=== PATIENT | male | born 1970 | race Hispanic/Latino ===

== ENCOUNTER 2023-03-02 11:56 | Inpatient (IN) | payer OTHER, MEDICARE ==
[2023-03-01 12:10] LABS: BASOPHILS % 0.8 % (0.0-1.0); EOSINOPHILS # (AUTO) 0.1 (0.0-0.4); HEMOGLOBIN 13.2 g/dL (14.0-18.0); LYMPHOCYTES # (AUTO) 0.8 (1.0-3.2); LYMPHOCYTES % 15.6 % (18.0-39.1); MEAN CORPUSCULAR HEMOGLOBIN 29.9 pg (28-32); MEAN CORPUSCULAR HGB CONC 33.8 g/dL (31-35); MEAN CORPUSCULAR VOLUME 88.2 fL (81-99); MONOCYTES # (AUTO) 0.2 (0.2-0.8); MONOCYTES % 4.6 % (4.4-11.3); NEUTROPHILS % 77.8 % (38.7-80.0); PLATELET COUNT 200 x10e3/uL (140-360); RED BLOOD COUNT 4.42 x10e6/uL (4.3-5.7); RED CELL DISTRIBUTION WIDTH 14.1 % (11.7-14.4); WHITE BLOOD COUNT 5.19 x10e3/uL (4.8-10.8)
[2023-03-01 12:24] LABS: INR 1.28; PROTHROMBIN TIME 16.3 seconds (11.9-14.5)
[2023-03-01 12:25] LABS: PARTIAL THROMBOPLASTIN TIME 29.2 seconds (23.8-35.5)
[2023-03-01 12:33] LABS: ALBUMIN/GLOBULIN RATIO 0.8 (0.8-2.0); BILIRUBIN,TOTAL 1.7 mg/dL (0.2-1.2); CALCIUM 7.8 mg/dL (8.4-10.2); CREATININE, SERUM 3.35 mg/dL (0.72-1.25)
[2023-03-02] VITALS (9 sets, daily range): BP systolic 86–107; BP diastolic 50–84; PULSE 65–74; RESP 14–18; TEMP 97.3–98.3; O2SAT 99–100
[~2023-03-02] VITALS: Ht 175.3 cm; Wt 93.4 kg
[~2023-03-02 11:56] MED LIST: ELIQUIS5 MG PO; NORCO PO; PANTOPRAZOLE SO40 MG PO
[2023-03-02] MEDS ORDERED: GLYCOPYRROLATE INJ 0.2 MG/ML VIAL ONE (12:40)
[2023-03-02] MEDS ORDERED: SEVOFLURANE INHAL SOLN 250 ML PEN BTL ONE (12:40)
[2023-03-02] MEDS ORDERED: PROPOFOL IV EMULSION 10 MG/ML 20 ML VIAL ONE (12:40)
[2023-03-02] MEDS ORDERED: ONDANSETRON HCL INJ 2MG/ML 2ML 2 MG/ML VIAL ONE (12:40)
[2023-03-02] MEDS ORDERED: DEXAMETHASONE SOD PHOS INJ 4 MG/ML SDV ONE (12:40)
[2023-03-02] MEDS ORDERED: ROCURONIUM BROMIDE 10 MG/ML 5ML VIAL IV ONE (12:40)
[2023-03-02] MEDS ORDERED: LIDOCAINE HCL 2% LOCAL INJ 5 ML SDV VIAL INJ ONE (12:40)
[2023-03-02] MEDS ORDERED: EPHEDRINE SULFATE INJ 50 MG/ML VIAL ONE (12:40)
[2023-03-02] MEDS ORDERED: ETOMIDATE 2 MG/ML 10 ML INJ IV ONE (12:40)
[2023-03-02] MEDS ORDERED: LACTATED RINGER'S 1,000 ML ONE (12:48)
[2023-03-02] MEDS ORDERED: MIDAZOLAM HCL 2 MG/2 ML VIAL ONE (12:57)
[2023-03-02] MEDS ORDERED: FENTANYL CITRATE/PF 100MCG/2 ML INJ ONE ×2 (12:57→17:56)
[2023-03-02] MEDS ORDERED: SUGAMMADEX SODIUM 200 MG/2 ML VIAL IV ONE (13:18)
[2023-03-02] MEDS ORDERED: KETAMINE 50MG/5ML SYR ONE (13:18)
[2023-03-02] MEDS ORDERED: ALBUMIN 25% 12.5GM 50ML 50 ML IV ONE (13:19)
[2023-03-02] MEDS ORDERED: FAMOTIDINE 20 MG/2 ML VIAL IV ONE (13:19)
[2023-03-02] MEDS ORDERED: ACETAMINOPHEN 1000 MG/100 ML 100 ML IV ONE (13:19)
[2023-03-02] MEDS ORDERED: BUPIVACAINE HCL 0.5% INJ 30 ML VIAL INJ ONE (13:30)
[2023-03-02] MEDS ORDERED: LIDOCAINE 1% W/EPINEPHRINE 20 ML VIAL ONE (13:30)
[2023-03-02] MEDS: SODIUM CHLORIDE 0.9% 250ML IRRIG IR SCH ×2 (18:00→22:00)
[2023-03-02] MEDS: DEXTROSE 5%/LACTATED RINGERS 1,000 ML IV SCH ×2 (18:18→19:24)
[2023-03-02] MEDS: Cefoxitin 2 G in SODIUM CHLORIDE 0.9% 100 ML IV SCH (19:24)
[2023-03-02] MEDS: HYDROMORPHONE 1MG/1ML INJ IV PRN (20:29)
[2023-03-03] VITALS (22 sets, daily range): BP systolic 80–108; BP diastolic 51–74; PULSE 77–108; RESP 16–25; TEMP 98–99; O2SAT 96–100
[2023-03-03] MEDS: ENOXAPARIN SOD INJ 40 MG/0.4 ML SYR SC SCH ×2 (01:18→14:15)
[2023-03-03] MEDS: Cefoxitin 2 G in SODIUM CHLORIDE 0.9% 100 ML IV SCH ×4 (01:18→20:15)
[2023-03-03] MEDS: HYDROMORPHONE 1MG/1ML INJ IV PRN ×3 (01:19→12:13)
[2023-03-03] MEDS: SODIUM CHLORIDE 0.9% 250ML IRRIG IR SCH ×5 (02:00→14:10)
[2023-03-03] MEDS: DEXTROSE 5%/LACTATED RINGERS 1,000 ML IV SCH (06:42)
[2023-03-03 07:35] LABS: BASOPHILS % 0.1 % (0.0-1.0); EOSINOPHILS % 0.1 % (0.0-6.0); HEMATOCRIT 32.8 % (38.2-49.6); HEMOGLOBIN 10.9 g/dL (14.0-18.0); LYMPHOCYTES # (AUTO) 2.1 (1.0-3.2); LYMPHOCYTES % 27.9 % (18.0-39.1); MEAN CORPUSCULAR HEMOGLOBIN 29.5 pg (28-32); MEAN CORPUSCULAR HGB CONC 33.2 g/dL (31-35); MEAN CORPUSCULAR VOLUME 88.6 fL (81-99); MONOCYTES # (AUTO) 0.5 (0.2-0.8); MONOCYTES % 7.2 % (4.4-11.3); NEUTROPHILS # (AUTO) 4.8 (2.1-6.9); NEUTROPHILS % 64.4 % (38.7-80.0); PLATELET COUNT 170 x10e3/uL (140-360); RED CELL DISTRIBUTION WIDTH 14.3 % (11.7-14.4); WHITE BLOOD COUNT 7.46 x10e3/uL (4.8-10.8)
[2023-03-03 07:49] LABS: ALBUMIN 2.4 g/dL (3.5-5.0); ALBUMIN/GLOBULIN RATIO 0.8 (0.8-2.0); ANION GAP 14.7 mmol/L (8-16); BILIRUBIN,TOTAL 1.5 mg/dL (0.2-1.2); CALCIUM 7.2 mg/dL (8.4-10.2); CREATININE, SERUM 3.16 mg/dL (0.72-1.25); POTASSIUM 3.7 mmol/L (3.5-5.1); TOTAL PROTEIN 5.4 g/dL (6.5-8.1)
[2023-03-03] MEDS ORDERED: ALBUMIN 5% 0.05 GM/ML BTL IV ONE (08:15)
[2023-03-03] MEDS: SODIUM CHLORIDE 0.9% 1000ML 1,000 ML IV SCH (14:23)
[2023-03-03] MEDS: ACETAMINOPHEN 1000 MG/100 ML IV SCH (16:44)
[2023-03-03] MEDS: CENTRAL TPN FORMULA 1 BAG IV SCH (20:18)
[2023-03-04] VITALS (13 sets, daily range): BP systolic 75–124; BP diastolic 50–86; PULSE 80–101; RESP 18–24; TEMP 98.4–99; O2SAT 91–99
[2023-03-04] MEDS: SODIUM CHLORIDE 0.9% 250ML IRRIG IR SCH ×7 (00:43→22:00)
[2023-03-04] MEDS: SODIUM CHLORIDE 0.9% 1000ML 1,000 ML IV SCH ×3 (00:44→20:08)
[2023-03-04] MEDS: ENOXAPARIN SOD INJ 40 MG/0.4 ML SYR SC SCH ×2 (00:52→14:27)
[2023-03-04] MEDS: ACETAMINOPHEN 1000 MG/100 ML IV SCH ×2 (00:53→05:22)
[2023-03-04] MEDS: Cefoxitin 2 G in SODIUM CHLORIDE 0.9% 100 ML IV SCH ×4 (01:01→20:08)
[2023-03-04 05:42] LABS: BASOPHILS % 0.3 % (0.0-1.0); EOSINOPHILS # (AUTO) 0.2 (0.0-0.4); EOSINOPHILS % 2.7 % (0.0-6.0); HEMATOCRIT 28.9 % (38.2-49.6); HEMOGLOBIN 9.7 g/dL (14.0-18.0); LYMPHOCYTES # (AUTO) 1.7 (1.0-3.2); LYMPHOCYTES % 27.9 % (18.0-39.1); MEAN CORPUSCULAR HEMOGLOBIN 29.8 pg (28-32); MEAN CORPUSCULAR HGB CONC 33.6 g/dL (31-35); MEAN CORPUSCULAR VOLUME 88.9 fL (81-99); MONOCYTES # (AUTO) 0.4 (0.2-0.8); MONOCYTES % 6.9 % (4.4-11.3); NEUTROPHILS # (AUTO) 3.7 (2.1-6.9); NEUTROPHILS % 61.9 % (38.7-80.0); PLATELET COUNT 133 x10e3/uL (140-360); RED BLOOD COUNT 3.25 x10e6/uL (4.3-5.7); RED CELL DISTRIBUTION WIDTH 14.2 % (11.7-14.4); WHITE BLOOD COUNT 5.96 x10e3/uL (4.8-10.8)
[2023-03-04 06:04] LABS: ALBUMIN 1.9 g/dL (3.5-5.0); ALBUMIN/GLOBULIN RATIO 0.7 (0.8-2.0); ANION GAP 12.5 mmol/L (8-16); BILIRUBIN,TOTAL 1.4 mg/dL (0.2-1.2); CREATININE, SERUM 3.08 mg/dL (0.72-1.25); POTASSIUM 3.5 mmol/L (3.5-5.1); TOTAL PROTEIN 4.5 g/dL (6.5-8.1)
[2023-03-04 06:08] LABS: CALCIUM 6.6 mg/dL (8.4-10.2)
[2023-03-04] MEDS ORDERED: POTASSIUM CHLORIDE 20MEQ/100ML 100 ML IV ONE (08:00)
[2023-03-04] MEDS ORDERED: MAGNESIUM SULFATE 2GM/50ML 50 ML IV ONE ×3 (08:45→15:00)
[2023-03-04] MEDS: MUPIROCIN 2% OINT 22 GM TUBE TOP SCH ×2 (09:54→21:16)
[2023-03-04] MEDS: HYDROMORPHONE 1MG/1ML INJ IV PRN ×5 (10:00→23:49)
[2023-03-04] MEDS ORDERED: ACETAMINOPHEN 1000 MG/100 ML IV PRN (12:00)
[2023-03-04] MEDS ORDERED: CALCIUM GLUC 1 G/50 ML NACL 100 ML IV ONE (12:45)
[2023-03-04] MEDS: CENTRAL TPN FORMULA 1 BAG IV SCH (20:20)
[2023-03-05] VITALS (22 sets, daily range): BP systolic 105–122; BP diastolic 71–89; PULSE 78–102; RESP 15–24; TEMP 98.1–98.8; O2SAT 93–100
[2023-03-05] MEDS: ENOXAPARIN SOD INJ 40 MG/0.4 ML SYR SC SCH ×2 (01:08→13:47)
[2023-03-05] MEDS: Cefoxitin 2 G in SODIUM CHLORIDE 0.9% 100 ML IV SCH ×4 (02:05→19:53)
[2023-03-05] MEDS: SODIUM CHLORIDE 0.9% 250ML IRRIG IR SCH ×4 (02:05→13:49)
[2023-03-05] MEDS: HYDROMORPHONE 1MG/1ML INJ IV PRN ×5 (04:17→19:54)
[2023-03-05 05:24] LABS: BASOPHILS % 0.1 % (0.0-1.0); EOSINOPHILS # (AUTO) 0.3 (0.0-0.4); EOSINOPHILS % 3.4 % (0.0-6.0); HEMATOCRIT 30.8 % (38.2-49.6); HEMOGLOBIN 9.9 g/dL (14.0-18.0); LYMPHOCYTES # (AUTO) 1.6 (1.0-3.2); LYMPHOCYTES % 22.2 % (18.0-39.1); MEAN CORPUSCULAR HEMOGLOBIN 29.3 pg (28-32); MEAN CORPUSCULAR HGB CONC 32.1 g/dL (31-35); MEAN CORPUSCULAR VOLUME 91.1 fL (81-99); MONOCYTES # (AUTO) 0.4 (0.2-0.8); PLATELET COUNT 173 x10e3/uL (140-360); RED BLOOD COUNT 3.38 x10e6/uL (4.3-5.7); RED CELL DISTRIBUTION WIDTH 14.3 % (11.7-14.4); WHITE BLOOD COUNT 7.35 x10e3/uL (4.8-10.8)
[2023-03-05 06:04] LABS: ALBUMIN 1.8 g/dL (3.5-5.0); ALBUMIN/GLOBULIN RATIO 0.6 (0.8-2.0); ANION GAP 12.8 mmol/L (8-16); BILIRUBIN,TOTAL 1.5 mg/dL (0.2-1.2); CALCIUM 7.7 mg/dL (8.4-10.2); CREATININE, SERUM 2.5 mg/dL (0.72-1.25); POTASSIUM 3.8 mmol/L (3.5-5.1); TOTAL PROTEIN 4.8 g/dL (6.5-8.1)
[2023-03-05] MEDS: MUPIROCIN 2% OINT 22 GM TUBE TOP SCH ×2 (09:54→19:53)
[2023-03-05] MEDS: SODIUM CHLORIDE 0.9% 1000ML 1,000 ML IV SCH (17:18)
[2023-03-05] MEDS ORDERED: CENTRAL TPN FORMULA 1 BAG IV SCH (20:00)
[2023-03-06] VITALS (16 sets, daily range): BP systolic 100–144; BP diastolic 66–100; PULSE 76–100; RESP 18–24; TEMP 97.2–99; O2SAT 95–100
[2023-03-06] MEDS: ENOXAPARIN SOD INJ 40 MG/0.4 ML SYR SC SCH ×2 (00:59→13:48)
[2023-03-06] MEDS: Cefoxitin 2 G in SODIUM CHLORIDE 0.9% 100 ML IV SCH ×4 (01:57→20:21)
[2023-03-06] MEDS: HYDROMORPHONE 1MG/1ML INJ IV PRN ×4 (01:57→21:00)
[2023-03-06] MEDS: SODIUM CHLORIDE 0.9% 1000ML 1,000 ML IV SCH ×2 (05:40→17:16)
[2023-03-06 06:20] LABS: BASOPHILS % 0.1 % (0.0-1.0); EOSINOPHILS # (AUTO) 0.3 (0.0-0.4); EOSINOPHILS % 3.9 % (0.0-6.0); HEMATOCRIT 30.7 % (38.2-49.6); HEMOGLOBIN 9.8 g/dL (14.0-18.0); LYMPHOCYTES # (AUTO) 1.6 (1.0-3.2); LYMPHOCYTES % 20.2 % (18.0-39.1); MEAN CORPUSCULAR HEMOGLOBIN 29.3 pg (28-32); MEAN CORPUSCULAR HGB CONC 31.9 g/dL (31-35); MEAN CORPUSCULAR VOLUME 91.6 fL (81-99); MONOCYTES # (AUTO) 0.4 (0.2-0.8); MONOCYTES % 5.6 % (4.4-11.3); NEUTROPHILS # (AUTO) 5.5 (2.1-6.9); NEUTROPHILS % 69.8 % (38.7-80.0); PLATELET COUNT 231 x10e3/uL (140-360); RED BLOOD COUNT 3.35 x10e6/uL (4.3-5.7); RED CELL DISTRIBUTION WIDTH 14.4 % (11.7-14.4); WHITE BLOOD COUNT 7.89 x10e3/uL (4.8-10.8)
[2023-03-06 06:52] LABS: CALCIUM 7.6 mg/dL (8.4-10.2); CREATININE, SERUM 1.68 mg/dL (0.72-1.25)
[2023-03-06] MEDS: MUPIROCIN 2% OINT 22 GM TUBE TOP SCH ×2 (07:57→20:21)
[2023-03-06] MEDS: ONDANSETRON HCL INJ 2MG/ML 2ML 2 MG/ML VIAL IV PRN ×2 (15:06→21:00)
[2023-03-07] VITALS (7 sets, daily range): BP systolic 125–154; BP diastolic 91–107; PULSE 87–95; RESP 17–20; TEMP 97.2–98.2; O2SAT 98–100
[2023-03-07] MEDS: ENOXAPARIN SOD INJ 40 MG/0.4 ML SYR SC SCH ×2 (00:27→13:36)
[2023-03-07] MEDS: ONDANSETRON HCL INJ 2MG/ML 2ML 2 MG/ML VIAL IV PRN ×2 (00:28→13:45)
[2023-03-07] MEDS: HYDROMORPHONE 1MG/1ML INJ IV PRN ×6 (00:28→21:34)
[2023-03-07] MEDS: Cefoxitin 2 G in SODIUM CHLORIDE 0.9% 100 ML IV SCH ×4 (01:06→19:49)
[2023-03-07 06:46] LABS: ANION GAP 12.6 mmol/L (8-16); CALCIUM 7.9 mg/dL (8.4-10.2); CREATININE, SERUM 1.82 mg/dL (0.72-1.25); POTASSIUM 4.6 mmol/L (3.5-5.1)
[2023-03-07] MEDS: MUPIROCIN 2% OINT 22 GM TUBE TOP SCH ×2 (08:22→19:51)
[2023-03-07] MEDS: SODIUM CHLORIDE 0.9% 1000ML 1,000 ML IV SCH ×2 (08:23→19:52)
[2023-03-07] MEDS: METOCLOPRAMIDE HCL 10 MG/2ML VIAL IV SCH ×2 (15:50→21:34)
[2023-03-08] VITALS (8 sets, daily range): BP systolic 105–144; BP diastolic 77–98; PULSE 86–103; RESP 15–18; TEMP 97.6–98.3; O2SAT 97–100
[2023-03-08] MEDS: ENOXAPARIN SOD INJ 40 MG/0.4 ML SYR SC SCH ×2 (01:48→12:17)
[2023-03-08] MEDS: HYDROMORPHONE 1MG/1ML INJ IV PRN ×7 (01:49→22:49)
[2023-03-08] MEDS: ONDANSETRON HCL INJ 2MG/ML 2ML 2 MG/ML VIAL IV PRN ×4 (01:49→22:49)
[2023-03-08] MEDS: Cefoxitin 2 G in SODIUM CHLORIDE 0.9% 100 ML IV SCH ×4 (01:49→19:07)
[2023-03-08] MEDS: SODIUM CHLORIDE 0.9% 1000ML 1,000 ML IV SCH (02:16)
[2023-03-08] MEDS: METOCLOPRAMIDE HCL 10 MG/2ML VIAL IV SCH ×3 (05:53→21:43)
[2023-03-08 06:16] LABS: BASOPHILS % 0.2 % (0.0-1.0); EOSINOPHILS # (AUTO) 0.1 (0.0-0.4); EOSINOPHILS % 1.1 % (0.0-6.0); HEMATOCRIT 29.8 % (38.2-49.6); HEMOGLOBIN 9.7 g/dL (14.0-18.0); LYMPHOCYTES # (AUTO) 1.7 (1.0-3.2); LYMPHOCYTES % 20.7 % (18.0-39.1); MEAN CORPUSCULAR HEMOGLOBIN 29.5 pg (28-32); MEAN CORPUSCULAR HGB CONC 32.6 g/dL (31-35); MEAN CORPUSCULAR VOLUME 90.6 fL (81-99); MONOCYTES # (AUTO) 0.7 (0.2-0.8); MONOCYTES % 8.6 % (4.4-11.3); NEUTROPHILS # (AUTO) 5.6 (2.1-6.9); NEUTROPHILS % 69.2 % (38.7-80.0); PLATELET COUNT 320 x10e3/uL (140-360); RED BLOOD COUNT 3.29 x10e6/uL (4.3-5.7); RED CELL DISTRIBUTION WIDTH 14.5 % (11.7-14.4); WHITE BLOOD COUNT 8.03 x10e3/uL (4.8-10.8)
[2023-03-08 06:33] LABS: ANION GAP 11.5 mmol/L (8-16); CALCIUM 7.8 mg/dL (8.4-10.2); CREATININE, SERUM 1.82 mg/dL (0.72-1.25); MAGNESIUM 1.8 MG/DL (1.3-2.1); POTASSIUM 4.5 mmol/L (3.5-5.1)
[2023-03-08] MEDS: SODIUM BICARBONATE 8.4% 50 ML in SODIUM CHLORIDE 0.45% 1,000 ML IV SCH (11:08)
[2023-03-08] MEDS: MUPIROCIN 2% OINT 22 GM TUBE TOP SCH ×2 (11:08→19:14)
[2023-03-08 14:17] LABS: ABG HCO3 19 mmol/L (22-26); ABG PCO2 31 mmHg (35-45); ABG PH 7.38 (7.35-7.45); ABG PO2 77 mmHg (80-105); ABG TCO2 19
[2023-03-09] VITALS (8 sets, daily range): BP systolic 108–131; BP diastolic 75–97; PULSE 70–98; RESP 18–19; TEMP 97.9–98.7; O2SAT 97–100
[2023-03-09] MEDS: ENOXAPARIN SOD INJ 40 MG/0.4 ML SYR SC SCH ×2 (01:17→13:47)
[2023-03-09] MEDS: Cefoxitin 2 G in SODIUM CHLORIDE 0.9% 100 ML IV SCH ×4 (01:17→19:42)
[2023-03-09] MEDS: ONDANSETRON HCL INJ 2MG/ML 2ML 2 MG/ML VIAL IV PRN ×4 (02:24→19:44)
[2023-03-09] MEDS: HYDROMORPHONE 1MG/1ML INJ IV PRN ×6 (02:25→19:41)
[2023-03-09] MEDS: SODIUM BICARBONATE 8.4% 50 ML in SODIUM CHLORIDE 0.45% 1,000 ML IV SCH (05:08)
[2023-03-09] MEDS: METOCLOPRAMIDE HCL 10 MG/2ML VIAL IV SCH ×3 (05:08→21:21)
[2023-03-09 06:56] LABS: CREATININE, SERUM 1.54 mg/dL (0.72-1.25)
[2023-03-09] MEDS: MUPIROCIN 2% OINT 22 GM TUBE TOP SCH ×2 (09:49→21:20)
[2023-03-09] MEDS: ACETAMINOPHEN 1000 MG/100 ML IV SCH ×3 (09:50→21:21)
[2023-03-09] MEDS: LACTATED RINGER'S 1,000 ML INJ SCH (15:58)
[2023-03-09 16:35] LABS: BILIRUBIN,URINE NEGATIVE (NEGATIVE); CLARITY,URINE SL CLOUDY (CLEAR); COLOR,URINE YELLOW (YELLOW); GLUCOSE, URINE NEGATIVE (NEGATIVE); KETONES,URINE 1+ (NEGATIVE); LEUKOCYTE ESTERASE ,URINE NEGATIVE (NEGATIVE); NITRITE,URINE NEGATIVE (NEGATIVE); PH,URINE 5.5 (5 - 7); PROTEIN,URINE DIPSTICK 2+ (NEGATIVE); URINE UROBILINOGEN 0.2 mg/dL (0.2 - 1)
[2023-03-09 16:48] LABS: BACTERIA,URINE FEW /HPF; WBC,URINE (MAN) 0-5 /HPF (0-5)
[2023-03-09 17:06] LABS: SODIUM,URINE 123 mmol/L
[2023-03-09 17:09] LABS: POTASSIUM,URINE 32.1 mmol/L
[2023-03-10] MEDS: HYDROMORPHONE 1MG/1ML INJ IV PRN ×8 (00:08→22:05)
[2023-03-10] MEDS: ONDANSETRON HCL INJ 2MG/ML 2ML 2 MG/ML VIAL IV PRN ×3 (00:08→22:05)
[2023-03-10] MEDS: Cefoxitin 2 G in SODIUM CHLORIDE 0.9% 100 ML IV SCH ×4 (02:54→20:17)
[2023-03-10] MEDS: ACETAMINOPHEN 1000 MG/100 ML IV SCH ×4 (02:57→22:04)
[2023-03-10 04:00] VITALS: BP 108/63; PULSE 71; RESP 18; TEMP 98.1; O2SAT 97
[2023-03-10] MEDS: LACTATED RINGER'S 1,000 ML INJ SCH (05:51)
[2023-03-10] MEDS: METOCLOPRAMIDE HCL 10 MG/2ML VIAL IV SCH ×3 (05:57→22:04)
[2023-03-10 06:47] LABS: ANION GAP 11.1 mmol/L (8-16); CALCIUM 7.3 mg/dL (8.4-10.2); CREATININE, SERUM 1.34 mg/dL (0.72-1.25); POTASSIUM 4.1 mmol/L (3.5-5.1)
[2023-03-10 08:40] VITALS: BP 135/87; PULSE 66; RESP 17; TEMP 97.8; O2SAT 100
[2023-03-10] MEDS: MUPIROCIN 2% OINT 22 GM TUBE TOP SCH ×2 (09:00→21:08)
[2023-03-10 11:41] VITALS: BP 135/87; PULSE 66; RESP 17; TEMP 97.8; O2SAT 100
[2023-03-10] MEDS ORDERED: LACTATED RINGER'S 1,000 ML INJ ONE (14:35)
[2023-03-10 16:32] VITALS: BP 129/97; PULSE 92; RESP 17; TEMP 98.2; O2SAT 99
[2023-03-10 20:00] VITALS: BP 124/90; PULSE 77; RESP 18; TEMP 98.4; O2SAT 98
[2023-03-11] VITALS (11 sets, daily range): BP systolic 116–125; BP diastolic 60–98; PULSE 68–87; RESP 17–18; TEMP 97.1–98.6; O2SAT 97–100
[2023-03-11] MEDS: Cefoxitin 2 G in SODIUM CHLORIDE 0.9% 100 ML IV SCH ×2 (01:03→07:27)
[2023-03-11] MEDS: HYDROMORPHONE 1MG/1ML INJ IV PRN ×6 (01:03→20:33)
[2023-03-11] MEDS: ACETAMINOPHEN 1000 MG/100 ML IV SCH (04:25)
[2023-03-11] MEDS: ONDANSETRON HCL INJ 2MG/ML 2ML 2 MG/ML VIAL IV PRN ×2 (04:25→07:39)
[2023-03-11 05:35] LABS: ANION GAP 11.9 mmol/L (8-16); CALCIUM 7.5 mg/dL (8.4-10.2); CREATININE, SERUM 1.21 mg/dL (0.72-1.25); POTASSIUM 3.9 mmol/L (3.5-5.1)
[2023-03-11] MEDS: METOCLOPRAMIDE HCL 10 MG/2ML VIAL IV SCH (05:42)
[2023-03-11] MEDS ORDERED: ACETAMINOPHEN 325 MG TAB PO PRN (10:00)
[2023-03-11] MEDS ORDERED: PROMETHAZINE 12.5MG/ NACL 0.9% 12.5 MG/50 ML BAG IV ONE (10:00)
[2023-03-11] MEDS: METOCLOPRAMIDE HCL 10 MG TAB PO SCH ×3 (11:48→20:33)
[2023-03-11] MEDS: ONDANSETRON HCL 4 MG ORAL DISINTEGRATING TAB PO PRN ×2 (13:49→20:33)
[2023-03-11] MEDS: HYDROCODONE/APAP 10MG-325MG TAB PO PRN ×2 (16:30→23:54)
[2023-03-12] VITALS (9 sets, daily range): BP systolic 104–124; BP diastolic 78–88; PULSE 72–101; RESP 18–19; TEMP 98–98.7; O2SAT 98–100
[2023-03-12] MEDS: HYDROMORPHONE 1MG/1ML INJ IV PRN ×6 (03:04→23:01)
[2023-03-12 05:04] LABS: BASOPHILS % 0.2 % (0.0-1.0); EOSINOPHILS # (AUTO) 0.1 (0.0-0.4); EOSINOPHILS % 1.2 % (0.0-6.0); HEMATOCRIT 28.8 % (38.2-49.6); HEMOGLOBIN 9.5 g/dL (14.0-18.0); LYMPHOCYTES # (AUTO) 2.1 (1.0-3.2); MEAN CORPUSCULAR HEMOGLOBIN 29.8 pg (28-32); MEAN CORPUSCULAR VOLUME 90.3 fL (81-99); MONOCYTES # (AUTO) 0.5 (0.2-0.8); MONOCYTES % 5.7 % (4.4-11.3); NEUTROPHILS % 68.6 % (38.7-80.0); PLATELET COUNT 306 x10e3/uL (140-360); RED BLOOD COUNT 3.19 x10e6/uL (4.3-5.7); RED CELL DISTRIBUTION WIDTH 13.7 % (11.7-14.4); WHITE BLOOD COUNT 8.82 x10e3/uL (4.8-10.8)
[2023-03-12 05:26] LABS: ANION GAP 9.7 mmol/L (8-16); CALCIUM 7.6 mg/dL (8.4-10.2); CREATININE, SERUM 1.1 mg/dL (0.72-1.25); POTASSIUM 3.7 mmol/L (3.5-5.1)
[2023-03-12 05:53] LABS: MAGNESIUM 1.2 MG/DL (1.3-2.1); PHOSPHORUS 1.6 MG/DL (2.3-4.7)
[2023-03-12] MEDS: HYDROCODONE/APAP 10MG-325MG TAB PO PRN ×2 (06:18→15:27)
[2023-03-12] MEDS ORDERED: MAGNESIUM SULFATE 2GM/50ML IV SCH (08:00)
[2023-03-12] MEDS ORDERED: POTASSIUM PHOSPHATE 20 MM in SODIUM CHLORIDE 0.9% 250ML 250 ML IV ONE (09:00)
[2023-03-12] MEDS: PANTOPRAZOLE SOD 40 MG TABEC PO SCH (09:41)
[2023-03-12] MEDS: METOCLOPRAMIDE HCL 10 MG TAB PO SCH ×4 (09:41→20:52)
[2023-03-12] MEDS: MAGNESIUM OXIDE 400 MG TAB PO SCH ×2 (09:41→17:29)
[2023-03-12] MEDS: MAGNESIUM SULFATE 2GM/50ML 50 ML IV SCH ×2 (09:42→11:28)
[2023-03-12] MEDS: MAGNESIUM/ALUMINUM/SIMETHICONE 30 ML UDC PO PRN ×2 (17:29→23:05)
[2023-03-12] MEDS: ONDANSETRON HCL 4 MG ORAL DISINTEGRATING TAB PO PRN (17:29)
[2023-03-13] VITALS (7 sets, daily range): BP systolic 110–128; BP diastolic 81–96; PULSE 80–96; RESP 18–20; TEMP 97.9–98.5; O2SAT 98–100
[2023-03-13] MEDS: HYDROMORPHONE 1MG/1ML INJ IV PRN ×5 (02:06→17:46)
[2023-03-13 06:43] LABS: ANION GAP 9.6 mmol/L (8-16); CALCIUM 7.5 mg/dL (8.4-10.2); CREATININE, SERUM 0.94 mg/dL (0.72-1.25); POTASSIUM 3.6 mmol/L (3.5-5.1)
[2023-03-13 06:57] LABS: MAGNESIUM 1.7 MG/DL (1.3-2.1); PHOSPHORUS 1.5 MG/DL (2.3-4.7)
[2023-03-13] MEDS: METOCLOPRAMIDE HCL 10 MG TAB PO SCH ×4 (08:13→21:26)
[2023-03-13] MEDS: PANTOPRAZOLE SOD 40 MG TABEC PO SCH (08:13)
[2023-03-13] MEDS: MAGNESIUM OXIDE 400 MG TAB PO SCH ×2 (08:16→17:00)
[2023-03-13] MEDS ORDERED: MAGNESIUM SULFATE 2GM/50ML 50 ML IV ONE (09:30)
[2023-03-13] MEDS ORDERED: POTASSIUM PHOSPHATE 20 MM in SODIUM CHLORIDE 0.9% 250ML 250 ML IV ONE (10:00)
[2023-03-13] MEDS ORDERED: SODIUM PHOSPHATE 3 MMOL/ML INJ IV SCH (16:45)
[2023-03-13] MEDS ORDERED: SODIUM PHOSPHATE 10 MMOL in SODIUM CHLORIDE 0.9% 250ML 250 ML IV ONE (17:00)
[2023-03-14] VITALS (8 sets, daily range): BP systolic 104–115; BP diastolic 76–83; PULSE 72–100; RESP 18–19; TEMP 97.6–98.5; O2SAT 94–100
[2023-03-14] MEDS: HYDROMORPHONE 1MG/1ML INJ IV PRN ×7 (00:37→21:10)
[2023-03-14 07:46] LABS: BASOPHILS % 0.4 % (0.0-1.0); EOSINOPHILS # (AUTO) 0.2 (0.0-0.4); EOSINOPHILS % 2.1 % (0.0-6.0); LYMPHOCYTES # (AUTO) 2.1 (1.0-3.2); LYMPHOCYTES % 25.2 % (18.0-39.1); MEAN CORPUSCULAR HEMOGLOBIN 29.5 pg (28-32); MEAN CORPUSCULAR HGB CONC 32.1 g/dL (31-35); MEAN CORPUSCULAR VOLUME 91.8 fL (81-99); MONOCYTES # (AUTO) 0.5 (0.2-0.8); MONOCYTES % 6.4 % (4.4-11.3); NEUTROPHILS # (AUTO) 5.4 (2.1-6.9); NEUTROPHILS % 65.7 % (38.7-80.0); PLATELET COUNT 261 x10e3/uL (140-360); RED BLOOD COUNT 3.05 x10e6/uL (4.3-5.7); RED CELL DISTRIBUTION WIDTH 14.1 % (11.7-14.4); WHITE BLOOD COUNT 8.26 x10e3/uL (4.8-10.8)
[2023-03-14 08:09] LABS: ANION GAP 8.9 mmol/L (8-16); CALCIUM 7.4 mg/dL (8.4-10.2); CREATININE, SERUM 0.95 mg/dL (0.72-1.25); POTASSIUM 3.9 mmol/L (3.5-5.1)
[2023-03-14] MEDS: METOCLOPRAMIDE HCL 10 MG TAB PO SCH ×4 (08:11→21:10)
[2023-03-14] MEDS: PANTOPRAZOLE SOD 40 MG TABEC PO SCH (08:11)
[2023-03-14] MEDS: MAGNESIUM OXIDE 400 MG TAB PO SCH ×2 (08:12→17:19)
[2023-03-14 08:31] LABS: MAGNESIUM 1.5 MG/DL (1.3-2.1); PHOSPHORUS 2.2 MG/DL (2.3-4.7)
[2023-03-14] MEDS ORDERED: MAGNESIUM SULFATE 2GM/50ML 50 ML IV PRN (08:45)
[2023-03-14] MEDS ORDERED: MAGNESIUM SULFATE 2GM/50ML IV PRN (08:45)
[2023-03-14] MEDS ORDERED: MAGNESIUM HYDROXIDE 30 ML UDC PO PRN (08:45)
[2023-03-14] MEDS: SENNA-S TABLET PO SCH ×2 (09:00→17:00)
[2023-03-14] MEDS: POLYETHYLENE GLYCOL 3350 17 GM PACK PO SCH ×2 (09:00→17:00)
[2023-03-14] MEDS: DOXYCYCLINE HYCLATE TABLET 100 MG TAB PO SCH ×2 (11:45→17:20)
[2023-03-14] MEDS: SODIUM CHLORIDE 452MG TAB PO SCH ×2 (11:45→17:19)
[2023-03-14] MEDS: MAGNESIUM/ALUMINUM/SIMETHICONE 30 ML UDC PO PRN (21:10)
[2023-03-15] VITALS: BP 137/82; PULSE 104; RESP 20; TEMP 97.3; O2SAT 100
[2023-03-15] MEDS: HYDROMORPHONE 1MG/1ML INJ IV PRN ×3 (00:42→07:11)
[2023-03-15 04:58] LABS: ANION GAP 11.1 mmol/L (8-16); CALCIUM 7.4 mg/dL (8.4-10.2); CREATININE, SERUM 1.03 mg/dL (0.72-1.25); POTASSIUM 4.1 mmol/L (3.6-4.7)
[2023-03-15] MEDS ORDERED: HYDROCODON-ACE1 EAC9 PO (06:22)
[2023-03-15 08:00] VITALS: BP 137/82; PULSE 104; RESP 20; TEMP 97.3; O2SAT 100
[2023-03-15] MEDS: METOCLOPRAMIDE HCL 10 MG TAB PO SCH (08:05)
[2023-03-15] MEDS: SODIUM CHLORIDE 452MG TAB PO SCH (08:05)
[2023-03-15] MEDS: POLYETHYLENE GLYCOL 3350 17 GM PACK PO SCH (08:05)
[2023-03-15] MEDS: DOXYCYCLINE HYCLATE TABLET 100 MG TAB PO SCH (08:05)
[2023-03-15] MEDS: PANTOPRAZOLE SOD 40 MG TABEC PO SCH (08:05)
[2023-03-15] MEDS: SENNA-S TABLET PO SCH (08:05)
[2023-03-15] MEDS: MAGNESIUM OXIDE 400 MG TAB PO SCH (08:05)
[2023-03-15 08:22] VITALS: BP 107/68; PULSE 100; RESP 17; TEMP 98.9; O2SAT 98
== END 2023-03-15 08:57 | disposition home or self-care (01) | DRG 907 ==
LOC: OR 11:56 → PACU V 16:38 → ICU 18:02 → MED/SURG 03-06 14:30
PROVIDERS: ADMIT Surgery; ATTEND Surgery
PROC: 0DQV0ZZ Repair Mesentery, Open Approach (ICD-10-PCS; 2023-03-02)
PROC: 02HV33Z Insertion of Infusion Device into Superior Vena Cava, Percutaneous Approach (ICD-10-PCS; principal; 2023-03-02 13:43)
PROC: 0WPF0JZ Removal of Synthetic Substitute from Abdominal Wall, Open Approach (ICD-10-PCS; principal; 2023-03-02 13:43)
PROC: 0DN80ZZ Release Small Intestine, Open Approach (ICD-10-PCS; 2023-03-02 13:43)
PROC: 0KQK0ZZ Repair Right Abdomen Muscle, Open Approach (ICD-10-PCS; 2023-03-02 13:43)
PROC: 0KQL0ZZ Repair Left Abdomen Muscle, Open Approach (ICD-10-PCS; 2023-03-02 13:43)
PROC: 0DB80ZZ Excision of Small Intestine, Open Approach (ICD-10-PCS; 2023-03-02 13:43)
DX: T81.83XA Persistent postprocedural fistula, initial encounter (principal); N17.0 Acute kidney failure with tubular necrosis; K63.2 Fistula of intestine; T85.79XA Infection and inflammatory reaction due to other internal prosthetic devices, implants and grafts, initial encounter; E44.0 Moderate protein-calorie malnutrition; E87.1 Hypo-osmolality and hyponatremia; E87.20 Acidosis, unspecified; T81.31XA Disruption of external operation (surgical) wound, not elsewhere classified, initial encounter; D64.9 Anemia, unspecified; N18.9 Chronic kidney disease, unspecified; E83.42 Hypomagnesemia; E87.6 Hypokalemia; Z68.30 Body mass index [BMI] 30.0-30.9, adult; E83.51 Hypocalcemia; E83.39 Other disorders of phosphorus metabolism; Z86.718 Personal history of other venous thrombosis and embolism; K66.0 Peritoneal adhesions (postprocedural) (postinfection); E86.0 Dehydration
CPT/HCPCS: 36415; 36569; 36600; 71045; 76770; 80048; 80053; 81001; 82805; 83735; 84100; 84133; 84300; 85025; 85610; 85730; 86850; 86900; 86920; 88304; 88307; 93005; 94799; J0694; J1100; J1170; J1650; J2001; J2250; J2405; J2765; J3475; J3480; J7030; J7050; Q0162

== ENCOUNTER 2024-04-27 22:33 | Inpatient (IN) | payer MEDICARE, OTHER ==
[~2024-04-27] VITALS: Ht 172.7 cm; Wt 100.3 kg
[~2024-04-27 22:33] MED LIST changes: +HYDROCODON-ACE1 EAC9 PO
[2024-04-27] MEDS: SODIUM CHLORIDE 0.9% 1000ML 1,000 ML IV STA (22:59)
[2024-04-27] MEDS: ACETAMINOPHEN 325 MG TAB PO STA (23:01)
[2024-04-27 23:24] LABS: BASOPHILS % 0.2 % (0.0-1.0); EOSINOPHILS % 0.1 % (0.0-6.0); HEMATOCRIT 52.6 % (38.2-49.6); HEMOGLOBIN 16.6 g/dL (14.0-18.0); LYMPHOCYTES # (AUTO) 1.9 (1.0-3.2); MEAN CORPUSCULAR HEMOGLOBIN 29.3 pg (28-32); MEAN CORPUSCULAR HGB CONC 31.6 g/dL (31-35); MEAN CORPUSCULAR VOLUME 92.8 fL (81-99); MONOCYTES # (AUTO) 1.1 (0.2-0.8); MONOCYTES % 9.7 % (4.4-11.3); NEUTROPHILS # (AUTO) 8.5 (2.1-6.9); NEUTROPHILS % 73.6 % (38.7-80.0); PLATELET COUNT 152 x10e3/uL (140-360); RED BLOOD COUNT 5.67 x10e6/uL (4.3-5.7); RED CELL DISTRIBUTION WIDTH 13.4 % (11.7-14.4); WHITE BLOOD COUNT 11.54 x10e3/uL (4.8-10.8)
[2024-04-27 23:38] LABS: ALBUMIN 3.3 g/dL (3.5-5.0); ALBUMIN/GLOBULIN RATIO 0.8 (0.8-2.0); ANION GAP 18.8 mmol/L (8-16); BILIRUBIN,TOTAL 0.7 mg/dL (0.2-1.2); CALCIUM 8.5 mg/dL (8.4-10.2); CREATININE, SERUM 2.88 mg/dL (0.72-1.25); POTASSIUM 3.8 mmol/L (3.5-5.1); TOTAL PROTEIN 7.2 g/dL (6.5-8.1)
[2024-04-27 23:45] LABS: TROPONIN I 0.007 ng/mL (0-0.300)
[2024-04-27 23:53] LABS: CORONAVIRUS COVID-19 AG NEGATIVE (NEGATIVE); INFLUENZA A AG POSITIVE (NEGATIVE); INFLUENZA B AG NEGATIVE (NEGATIVE)
[2024-04-28] VITALS (11 sets, daily range): BP systolic 78–114; BP diastolic 53–77; PULSE 60–91; RESP 17–24; TEMP 97.8–101.9; O2SAT 95–99
[2024-04-28] MEDS: SODIUM CHLORIDE 0.9% 1000ML 1,000 ML IV SCH (00:21)
[2024-04-28] MEDS: IBUPROFEN 400 MG TAB PO ONE (00:22)
[2024-04-28] MEDS: ONDANSETRON HCL INJ 2MG/ML 2ML 2 MG/ML VIAL IV PRN (00:33)
[2024-04-28] MEDS: SODIUM CHLORIDE 0.9% 1000ML 1,000 ML, SODIUM CHLORIDE 0.9% 1000ML 1,000 ML IV SCH (03:37)
[2024-04-28] MEDS: SODIUM CHLORIDE 0.9% 1000ML 1,000 ML ONE (04:39)
[2024-04-28 06:55] LABS: BASOPHILS % 0.4 % (0.0-1.0); EOSINOPHILS % 0.1 % (0.0-6.0); HEMATOCRIT 45.4 % (38.2-49.6); HEMOGLOBIN 14.6 g/dL (14.0-18.0); LYMPHOCYTES # (AUTO) 1.6 (1.0-3.2); MEAN CORPUSCULAR HEMOGLOBIN 29.4 pg (28-32); MEAN CORPUSCULAR HGB CONC 32.2 g/dL (31-35); MEAN CORPUSCULAR VOLUME 91.3 fL (81-99); MONOCYTES # (AUTO) 0.8 (0.2-0.8); MONOCYTES % 10.3 % (4.4-11.3); NEUTROPHILS # (AUTO) 5.4 (2.1-6.9); NEUTROPHILS % 68.9 % (38.7-80.0); PLATELET COUNT 127 x10e3/uL (140-360); RED BLOOD COUNT 4.97 x10e6/uL (4.3-5.7); RED CELL DISTRIBUTION WIDTH 13.2 % (11.7-14.4); WHITE BLOOD COUNT 7.86 x10e3/uL (4.8-10.8)
[2024-04-28 07:41] LABS: ALBUMIN 2.7 g/dL (3.5-5.0); ALBUMIN/GLOBULIN RATIO 0.8 (0.8-2.0); ANION GAP 14.9 mmol/L (8-16); BILIRUBIN,TOTAL 0.6 mg/dL (0.2-1.2); CALCIUM 7.6 mg/dL (8.4-10.2); CREATININE, SERUM 2.49 mg/dL (0.72-1.25); TOTAL PROTEIN 5.9 g/dL (6.5-8.1)
[2024-04-28 07:45] LABS: POTASSIUM 2.9 mmol/L (3.5-5.1)
[2024-04-28 08:27] LABS: TROPONIN I 0.007 ng/mL (0-0.300)
[2024-04-28] MEDS: POTASSIUM CHLORIDE 20MEQ/100ML 100 ML IV SCH (11:07)
[2024-04-28] MEDS ORDERED: POTASSIUM CITRATE ER 10 MEQ TAB PO ONE (12:00)
[2024-04-28] MEDS: POTASSIUM CITRATE ER 10 MEQ TAB PO ONE ×2 (14:12→15:39)
[2024-04-28 15:08] LABS: ABG HCO3 16 mmol/L (22-26); ABG PCO2 29 mmHg (35-45); ABG PH 7.36 (7.35-7.45); ABG PO2 64 mmHg (80-105); ABG TCO2 17
[2024-04-28] MEDS: LACTATED RINGER'S 1,000 ML INJ SCH (15:40)
[2024-04-28] MEDS: SODIUM BICARBONATE 650 MG TAB PO SCH (16:00)
[2024-04-28] MEDS: SODIUM BICARBONATE 650 MG TAB ONE (16:55)
[2024-04-28] MEDS: OSELTAMIVIR PHOSPHATE 30 MG CAPSULE PO SCH (18:07)
[2024-04-28] MEDS: ENOXAPARIN 30 MG/0.3 ML SYR SC SCH (18:07)
[2024-04-28] MEDS: CEFTRIAXONE 2 GM in SODIUM CHLORIDE 0.9% 100 ML IV SCH (18:10)
[2024-04-28] MEDS: Morphine 4mg INJECTION 4 MG/ML INJ IV PRN (20:40)
[2024-04-29] VITALS (9 sets, daily range): BP systolic 93–112; BP diastolic 63–87; PULSE 58–78; RESP 18–20; TEMP 97.7–99.3; O2SAT 94–100
[2024-04-29 05:43] LABS: BASOPHILS % 0.4 % (0.0-1.0); EOSINOPHILS % 0.4 % (0.0-6.0); HEMATOCRIT 45.3 % (38.2-49.6); HEMOGLOBIN 14.4 g/dL (14.0-18.0); LYMPHOCYTES # (AUTO) 1.9 (1.0-3.2); LYMPHOCYTES % 37.3 % (18.0-39.1); MEAN CORPUSCULAR HEMOGLOBIN 29.4 pg (28-32); MEAN CORPUSCULAR HGB CONC 31.8 g/dL (31-35); MEAN CORPUSCULAR VOLUME 92.4 fL (81-99); MONOCYTES # (AUTO) 0.5 (0.2-0.8); MONOCYTES % 10.2 % (4.4-11.3); NEUTROPHILS # (AUTO) 2.5 (2.1-6.9); NEUTROPHILS % 50.9 % (38.7-80.0); PLATELET COUNT 141 x10e3/uL (140-360); RED CELL DISTRIBUTION WIDTH 13.3 % (11.7-14.4); WHITE BLOOD COUNT 4.99 x10e3/uL (4.8-10.8)
[2024-04-29 06:08] LABS: ALBUMIN 2.5 g/dL (3.5-5.0); ALBUMIN/GLOBULIN RATIO 0.7 (0.8-2.0); ANION GAP 15.7 mmol/L (8-16); BILIRUBIN,TOTAL 0.4 mg/dL (0.2-1.2); CALCIUM 7.9 mg/dL (8.4-10.2); CREATININE, SERUM 1.61 mg/dL (0.72-1.25); POTASSIUM 3.7 mmol/L (3.5-5.1)
[2024-04-29] MEDS: PANTOPRAZOLE SOD 40 MG TABEC PO SCH (09:36)
[2024-04-29] MEDS ORDERED: SODIUM BICARBONATE 8.4% VIAL 50 ML in SODIUM CHLORIDE 0.45% 1,000 ML IV ONE (15:45)
[2024-04-29] MEDS ORDERED: TAMIFLU75 MG PO (16:59)
[2024-04-29] MEDS ORDERED: AUGMENTIN 500-1 EACH PO (17:02)
[2024-04-30 06:47] LABS: ABG HCO3 16 mmol/L (22-26); ABG PCO2 29 mmHg (35-45); ABG PH 7.36 (7.35-7.45); ABG PO2 64 mmHg (80-105); ABG TCO2 17
== END 2024-04-29 18:34 | disposition home or self-care (01) | DRG 871 ==
LOC: ER 22:47 → ERHOLD 23:59 → MED/SURG2 04-28 01:33
PROVIDERS: ADMIT Internal Medicine; ATTEND Internal Medicine
PROC: 3E0333Z Introduction of Anti-inflammatory into Peripheral Vein, Percutaneous Approach (ICD-10-PCS; principal; 2024-04-27)
PROC: 4A133R1 Monitoring of Arterial Saturation, Peripheral, Percutaneous Approach (ICD-10-PCS; 2024-04-28)
DX: A41.9 Sepsis, unspecified organism (principal); J10.08 Influenza due to other identified influenza virus with other specified pneumonia; J15.9 Unspecified bacterial pneumonia; E87.20 Acidosis, unspecified; R64 Cachexia; E87.1 Hypo-osmolality and hyponatremia; N17.9 Acute kidney failure, unspecified; R65.20 Severe sepsis without septic shock; K21.9 Gastro-esophageal reflux disease without esophagitis; E87.6 Hypokalemia; R53.81 Other malaise; Z93.3 Colostomy status; Z90.49 Acquired absence of other specified parts of digestive tract; Z11.52 Encounter for screening for COVID-19; Z68.33 Body mass index [BMI] 33.0-33.9, adult
CPT/HCPCS: 36415; 36600; 71045; 76770; 80053; 82550; 82805; 83605; 83690; 83735; 83880; 84484; 85025; 87040; 87086; 94799; 99285; J0696; J1650; J2270; J2405; J2543; J3480; J7030; J7050